=== PATIENT | male | born 1975 | race Caucasian/White ===

== ENCOUNTER 2021-07-31 11:00 | Emergency (ER) | payer BC ==
[~2021-07-31 11:00] MED LIST: ZITHROMAX250 MG PO
[2021-07-31 12:44] LABS: HEMOGLOBIN 14.5 gm/dl (14.0-17.5); RED BLOOD COUNT 4.77 M/UL (4.20-5.50); WHITE BLOOD COUNT 8.4 K/UL (4.5-11.0)
[2021-07-31 13:05] LABS: BUN/CREATININE RATIO 15 (0-10)
[2021-07-31] MEDS ORDERED: FLOMAX 0.4 MG0.4 MG PO (14:11)
[2021-07-31] MEDS ORDERED: ZOFRAN 4 MG TAB4 MG PO (14:11)
[2021-07-31] MEDS ORDERED: TORADOL 10 MG T10 MG PO (14:11)
== END 2021-07-31 14:38 | disposition home or self-care (01) ==
LOC: ER1 11:00
PROVIDERS: Physician Assistant
DX: N13.2 Hydronephrosis with renal and ureteral calculous obstruction (principal); I10 Essential (primary) hypertension; E11.9 Type 2 diabetes mellitus without complications; Z88.0 Allergy status to penicillin
CPT/HCPCS: 80053; 81001; 85025; 96374; 96375; 99284; J2270; J2405; Q9967